=== PATIENT | female | born 1985 | race Caucasian/White ===

== ENCOUNTER 2022-01-07 19:13 | Emergency (ER) | payer OTHER ==
[~2022-01-07] VITALS: Ht 165.1 cm; Wt 93.9 kg
[2022-01-07 20:15] VITALS: BP 157/81
--- NOTE | 2022-01-07 20:46 | NUR ---
PT TAKEN TO BED 7
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
--- NOTE | 2022-01-07 21:01 | NUR ---
PATIENT AMBULATED TO THE AND BACK TO BED 7
--- NOTE | 2022-01-07 21:08 | NUR ---
Dr. Laughlin examining patient.
[2022-01-07] MEDS ORDERED: SULF-59 PO (21:49)
[2022-01-07 22:01] VITALS: BP 128/68
--- NOTE | 2022-01-07 22:01 | NUR ---
Patient discharged with v/s stable. Written and verbal after care instructions given on UTI and explained. Patient alert, oriented and verbalized understanding of instructions. Ambulatory with steady gait. All questions addressed prior to discharge. ID band removed. Patient advised to follow up with PMD. Rx of Bactrim Ds given.
--- NOTE | 2022-01-07 22:01 | NUR ---
The patient's care was reviewed and supervised by Lynnette Meng RN.
== END 2022-01-07 21:57 | disposition home or self-care (01) ==
LOC: MED 19:13
DX: N39.0 Urinary tract infection, site not specified (principal); Z79.2 Long term (current) use of antibiotics
CPT/HCPCS: 81002; 81025; 99285